=== PATIENT | male | born 1980 | race Caucasian/White ===

== ENCOUNTER 2016-06-30 18:58 | Emergency (ER) | payer SELFPAY ==
[~2016-06-30] VITALS: Ht 177.8 cm; Wt 77.1 kg
[~2016-06-30 18:58] MED LIST: CETI10CA PO
--- NOTE | 2016-06-30 19:20 | NUR ---
Pt accidently rubbed right eye with comet bleach today. Here for redness on right eye and pain
[2016-06-30] MEDS ORDERED: FLUORESCEIN SODIUM 1 MG STRIP OP ONE (20:30)
[2016-06-30] MEDS ORDERED: TETRACAINE HCL 0.5% OPHT DROP 2 ML BOTTLE OP ONE (20:30)
[2016-06-30] MEDS ORDERED: TETRACAINE HCL 0.5% OPHT DROP 2 ML BOTTLE ONE (20:35)
[2016-06-30] MEDS ORDERED: FLUORESCEIN SODIUM 1 MG STRIP ONE (20:35)
--- NOTE | 2016-06-30 21:32 | NUR ---
Patient discharged to home in stable conditon. Written and verbal after care instructions given. Patient verbalizes understanding of instructions. walked out of ER with steady gait. No distress noted
[2016-06-30 21:35] VITALS: BP 130/89
[2016-07-01] MEDS ORDERED: DEXT15DR27 OP (18:15)
== END 2016-06-30 21:36 | disposition home or self-care (01) ==
LOC: ER 19:02
DX: T54.91XA Toxic effect of unspecified corrosive substance, accidental (unintentional), initial encounter (principal); F41.9 Anxiety disorder, unspecified; T26.92XA Corrosion of left eye and adnexa, part unspecified, initial encounter; Y93.E9 Activity, other interior property and clothing maintenance; Y99.8 Other external cause status; Y92.89 Other specified places as the place of occurrence of the external cause
CPT/HCPCS: A4663; J7030

== ENCOUNTER 2016-07-01 18:02 | Emergency (ER) | payer SELFPAY ==
[~2016-07-01] VITALS: Ht 175.3 cm; Wt 77.1 kg
[2016-07-01] MEDS ORDERED: DEXT15DR27 OP (18:15)
--- NOTE | 2016-07-01 19:40 | NUR ---
MSE DONE AT BEDSIDE DR PARHAM. WILL BE [place] HOME
--- NOTE | 2016-07-01 19:45 | NUR ---
Patient discharged to home in stable conditon. Written and verbal after care instructions given. Patient verbalizes understanding of instructions.
== END 2016-07-01 19:47 | disposition home or self-care (01) ==
LOC: ER 18:02
DX: T54.91XA Toxic effect of unspecified corrosive substance, accidental (unintentional), initial encounter (principal); T26.92XA Corrosion of left eye and adnexa, part unspecified, initial encounter; F41.9 Anxiety disorder, unspecified; F41.0 Panic disorder [episodic paroxysmal anxiety]; Y93.89 Activity, other specified; Y99.8 Other external cause status; Y92.89 Other specified places as the place of occurrence of the external cause
CPT/HCPCS: A4663

== ENCOUNTER 2016-07-09 02:15 | Emergency (ER) | payer SELFPAY ==
[~2016-07-09] VITALS: Ht 175.3 cm; Wt 84.4 kg
[~2016-07-09 02:15] MED LIST changes: -CETI10CA PO; +DEXT15DR27 OP
--- NOTE | 2016-07-09 03:02 | NUR ---
dPatient discharged to home in stable conditon. Written and verbal after care instructions given. Patient verbalizes understanding of instructions. Ambulated from ER with stable gait. All belongings with patient.
[2016-07-09 03:05] VITALS: BP 115/88
[2016-07-09] MEDS ORDERED: TDAP DIPH,PERTUSS,TET VAC/PF 0.5 ML DISP.SYRIN IM ONE ×2 (03:07→03:15)
== END 2016-07-09 03:06 | disposition home or self-care (01) ==
LOC: ER 02:16
DX: S61.032A Puncture wound without foreign body of left thumb without damage to nail, initial encounter (principal); F41.9 Anxiety disorder, unspecified; F41.0 Panic disorder [episodic paroxysmal anxiety]; X58.XXXA Exposure to other specified factors, initial encounter; Y93.89 Activity, other specified; Y92.89 Other specified places as the place of occurrence of the external cause; Y99.8 Other external cause status
CPT/HCPCS: 73140; 90471; 90715; 99284; A4663

== ENCOUNTER 2017-08-04 03:39 | Emergency (ER) | payer MEDICAID ==
[~2017-08-04] VITALS: Ht 175.3 cm; Wt 87.2 kg
[2017-08-04] MEDS ORDERED: SIMETHICONE 80 MG TAB.CHEW PO ONE (04:15)
[2017-08-04] MEDS ORDERED: MAG HYDROX/AL HYDROX/SIMETH 30 ML LIQUID UDC PO ONE (04:15)
[2017-08-04] MEDS ORDERED: MAGNESIUM HYDROXIDE 30 ML LIQUID UDC ONE (04:21)
[2017-08-04] MEDS ORDERED: SIMETHICONE 80 MG TAB.CHEW ONE (04:21)
[2017-08-04] MEDS ORDERED: MAG HYDROX/AL HYDROX/SIMETH 30 ML LIQUID UDC ONE (04:22)
[2017-08-04 04:42] VITALS: BP 122/71
[2017-08-04] MEDS ORDERED: ACETAMINOPHEN ES 500 MG TABLET ONE (04:42)
[2017-08-04] MEDS ORDERED: ACETAMINOPHEN ES 500 MG TABLET PO ONE (04:45)
== END 2017-08-04 04:43 | disposition home or self-care (01) ==
LOC: ER 03:42
DX: R50.9 Fever, unspecified (principal); F41.9 Anxiety disorder, unspecified; Z91.030 Bee allergy status; Z79.899 Other long term (current) drug therapy
CPT/HCPCS: A4663; A9150

== ENCOUNTER 2018-08-03 20:53 | Emergency (ER) | payer MEDICAID ==
[~2018-08-03] VITALS: Ht 172.7 cm; Wt 91.6 kg
[2018-08-03] MEDS ORDERED: IBUPROFEN 800 MG TABLET PO ONE (21:15)
[2018-08-03] MEDS ORDERED: IBUPROFEN 800 MG TABLET ONE (21:25)
--- NOTE | 2018-08-03 21:58 | NUR ---
Patient transported to CT in stable condition.
--- NOTE | 2018-08-03 22:03 | NUR ---
Radiology called and spoke to ERMD stating that the patient is refusing CT, and is requesting only for XRAY. ERMD will cxl order and replace it with new.
--- NOTE | 2018-08-03 23:05 | NUR ---
Patient discharged to home in stable conditon. Written and verbal after care instructions given. Patient verbalizes understanding of instructions. WALED OUT OF ER WITH NO DISTRESS NOTED
[2018-08-03 23:06] VITALS: BP 139/84
== END 2018-08-03 23:07 | disposition home or self-care (01) ==
LOC: ER 20:55
DX: S23.29XA Dislocation of other parts of thorax, initial encounter (principal); Z91.030 Bee allergy status; Z79.899 Other long term (current) drug therapy; W51.XXXA Accidental striking against or bumped into by another person, initial encounter; Y93.89 Activity, other specified; Y92.89 Other specified places as the place of occurrence of the external cause; Y99.8 Other external cause status
CPT/HCPCS: 71101; A4663

== ENCOUNTER 2018-11-16 12:53 | Emergency (ER) | payer MEDICAID ==
[~2018-11-16] VITALS: Ht 175.3 cm; Wt 90.7 kg
[~2018-11-16 12:53] MED LIST changes: -DEXT15DR27 OP; +[UNRECOGNIZED DRUG - CODE] OP
--- NOTE | 2018-11-16 13:16 | NUR ---
[facility]EN CARMEN AT BEDSIDE FOR MSE.
[2018-11-16] MEDS ORDERED: IV NORMAL SALINE 1000 ML BAG IV ONE (13:30)
[2018-11-16 13:43] LABS: BASOPHILS # (AUTO) 0.1 K/uL (0.0-8.0); BASOPHILS % (AUTO) 1.5 % (0.0-2.0); EOSINOPHILS # (AUTO) 0.1 K/uL (0.0-0.7); EOSINOPHILS % (AUTO) 0.7 % (0.0-7.0); HEMATOCRIT 47.6 % (36.7-47.1); LYMPHOCYTES # (AUTO) 2.2 K/uL (20.0-40.0); LYMPHOCYTES % (AUTO) 26.1 % (20.5-51.5); MEAN CORPUSCULAR HEMOGLOBIN 30.1 uug (23.8-33.4); MEAN CORPUSCULAR HGB CONC 34 g/dL (32.5-36.3); MEAN CORPUSCULAR VOLUME 89.5 fL (73.0-96.2); MONOCYTES # (AUTO) 0.7 K/uL (2.0-10.0); MONOCYTES % (AUTO) 8.1 % (0.0-11.0); NEUTROPHILS # (AUTO) 5.3 K/uL (1.8-8.9); NEUTROPHILS % (AUTO) 63.6 % (38.5-71.5); PLATELET COUNT (AUTO) 191 K/uL (152-348); RED BLOOD CELL COUNT(AUTO) 5.32 MIL/uL (4.06-5.63); WHITE BLOOD COUNT (AUTO) 8.4 K/uL (3.6-10.2)
[2018-11-16 13:49] LABS: POTASSIUM 3.8 mmol/L (3.5-5.1)
[2018-11-16 13:56] LABS: BILIRUBIN,DIRECT 0.2 mg/dL (0.0-0.2); BILIRUBIN,TOTAL 0.8 mg/dL (0.2-1.0); TOTAL PROTEIN, SERUM 7.4 g/dL (6.4-8.2)
[2018-11-16 15:06] LABS: *BILIRUBIN,URIN NEGATIVE (NEGATIVE); *BLOOD, URINE NEGATIVE (NEGATIVE); *CLARITY,URINE CLEAR (CLEAR); *COLOR,URINE LIGHT YELLOW (YELLOW); *KETONES,URINE NEGATIVE (NEGATIVE); *UROBILINOGEN,URINE 0.2 E.U./dl (NORMAL); LEUKOCYTE ESTERASE ,URINE NEGATIVE (NEGATIVE); NITRITE, URINE NEGATIVE (NEGATIVE); PH,URINE 6.5 (5.0-8.0); UGLUCOSE NEGATIVE (NEGATIVE)
[2018-11-16 15:20] LABS: *AMPHETAMINE, URINE NEGATIVE (NEGATIVE); *BARBITURATE, URINE NEGATIVE (NEGATIVE); *CANNABINOID, URINE NEGATIVE (NEGATIVE); *COCCAINE, URINE NEGATIVE (NEGATIVE); *OPIATE, URINE NEGATIVE (NEGATIVE); *PHENCYCLIDINE SCREEN,URINE NEGATIVE (NEGATIVE)
--- NOTE | 2018-11-16 15:48 | NUR ---
Patient discharged to home in stable conditon. Written and verbal after care instructions given. Patient verbalizes understanding of instructions. ALL BELONGINGS W/ PT. PT SELF-AMBULATED W/O DIFFICULTY. 20G IV ACCESS IN RAC REMOVED PRIOR TO D/C - INNER CANNULA INTACT.
[2018-11-16 15:49] VITALS: BP 139/88
== END 2018-11-16 15:49 | disposition home or self-care (01) ==
LOC: ER 12:53
DX: R00.2 Palpitations (principal); R74.0 Nonspecific elevation of levels of transaminase and lactic acid dehydrogenase [LDH]; F41.9 Anxiety disorder, unspecified; Z88.8 Allergy status to other drugs, medicaments and biological substances; Z91.030 Bee allergy status; Z79.899 Other long term (current) drug therapy
CPT/HCPCS: 36415; 70030-TC; 71046; 80307; 84443; 85025; 93005; A4663; J7030

== ENCOUNTER 2018-12-22 12:03 | Emergency (ER) | payer MEDICAID ==
[~2018-12-22] VITALS: Ht 177.8 cm; Wt 81.6 kg
[2018-12-22 13:10] LABS: MAGNESIUM 2.2 mg/dL (1.8-2.4); POTASSIUM 4.2 mmol/L (3.5-5.1)
--- NOTE | 2018-12-22 14:17 | NUR ---
PT WAS EVALUATED BY DR ESTRELLA. PT WAS D/C TO HOME. D/C INSTRUCTIONS GIVEN TO THE PT.
[2018-12-22 14:19] VITALS: BP 136/71
== END 2018-12-22 14:19 | disposition home or self-care (01) ==
LOC: ER 12:03
DX: F41.9 Anxiety disorder, unspecified (principal); F41.0 Panic disorder [episodic paroxysmal anxiety]; Z88.8 Allergy status to other drugs, medicaments and biological substances; Z91.030 Bee allergy status
CPT/HCPCS: 36415; 83735; A4663

== ENCOUNTER 2019-01-21 21:12 | Emergency (ER) | payer MEDICAID ==
[~2019-01-21] VITALS: Ht 172.7 cm; Wt 82.6 kg
--- NOTE | 2019-01-21 21:52 | NUR ---
After being triaged. Patient refused to be seen by ERMD stating "I feel fine now,I am going home."
== END 2019-01-21 21:54 | disposition left against medical advice (07) ==
LOC: ER 21:15
DX: Z53.21 Procedure and treatment not carried out due to patient leaving prior to being seen by health care provider (principal)
CPT/HCPCS: A4663

== ENCOUNTER 2023-08-05 23:11 | Emergency (ER) | payer MEDICAID ==
[~2023-08-05] VITALS: Ht 172.7 cm; Wt 86.2 kg
[2023-08-06] MEDS ORDERED: AMOX500T2 PO (00:46)
[2023-08-06] MEDS: AMOXicillin 250 MG CAPSULE PO ONE (00:46)
[2023-08-06] MEDS ORDERED: AMOXicillin 250 MG CAPSULE ONE (00:46)
[2023-08-06] MEDS ORDERED: ERYT3.5O24 EACHEYE (00:46)
[2023-08-06 01:06] LABS: *BILIRUBIN,URIN NEGATIVE (NEGATIVE); *BLOOD, URINE NEGATIVE (NEGATIVE); *CLARITY,URINE CLEAR (CLEAR); *COLOR,URINE YELLOW (YELLOW); *KETONES,URINE NEGATIVE (NEGATIVE); *PROTEIN,URINE NEGATIVE (NEGATIVE); *UROBILINOGEN,URINE 0.2 E.U./dl (NORMAL); LEUKOCYTE ESTERASE ,URINE NEGATIVE (NEGATIVE); NITRITE, URINE NEGATIVE (NEGATIVE); PH,URINE 6.5 (5.0-8.0); UGLUCOSE NEGATIVE (NEGATIVE)
[2023-08-06 01:21] LABS: *AMPHETAMINE, URINE NEGATIVE (NEGATIVE); *BARBITURATE, URINE NEGATIVE (NEGATIVE); *BENZODIAZEPINE, URINE NEGATIVE (NEGATIVE); *CANNABINOID, URINE NEGATIVE (NEGATIVE); *COCCAINE, URINE NEGATIVE (NEGATIVE); *OPIATE, URINE NEGATIVE (NEGATIVE); *PHENCYCLIDINE SCREEN,URINE NEGATIVE (NEGATIVE); FENTANYL, URINE NEGATIVE (NEGATIVE)
[2023-08-06 03:30] VITALS: BP 143/88; TEMP 98.7; O2SAT 97
== END 2023-08-06 01:05 | disposition home or self-care (01) ==
LOC: ER 23:23
DX: J40 Bronchitis, not specified as acute or chronic (principal); H10.9 Unspecified conjunctivitis; K21.9 Gastro-esophageal reflux disease without esophagitis; Z79.899 Other long term (current) drug therapy
CPT/HCPCS: 71045; A4606; A4663

== ENCOUNTER 2023-10-11 12:34 | Emergency (ER) | payer MEDICAID ==
[~2023-10-11 12:34] MED LIST changes: +AMOX500T2 PO; +ERYT3.5O24 EACHEYE; -[UNRECOGNIZED DRUG - CODE] OP
== END 2023-10-11 12:49 | disposition left against medical advice (07) ==
LOC: ER 12:34
DX: K62.89 Other specified diseases of anus and rectum (principal); Z53.21 Procedure and treatment not carried out due to patient leaving prior to being seen by health care provider

== ENCOUNTER 2023-12-27 20:08 | Emergency (ER) | payer MEDICAID ==
[~2023-12-27] VITALS: Ht 172.7 cm; Wt 86.2 kg
[2023-12-27 20:44] VITALS: BP 139/85; TEMP 98.6; O2SAT 99
== END 2023-12-27 20:45 | disposition home or self-care (01) ==
LOC: ER 20:09
DX: F41.9 Anxiety disorder, unspecified (principal); R20.0 Anesthesia of skin; K21.9 Gastro-esophageal reflux disease without esophagitis; Z79.899 Other long term (current) drug therapy; Z91.030 Bee allergy status
CPT/HCPCS: A4606; A4663